=== PATIENT | female | born 1995 | race Caucasian/White ===

== ENCOUNTER → 2017-10-08 | Emergency (ER) | payer OTHER ==
[~2017-10-08] VITALS: Ht 154.9 cm; Wt 73.5 kg
[~2017-10-08] MED LIST: AMOX TR-K250 MG/5 M; IRON1TAB4 PO; MIRALAX12 EA PO; PREVACID30 MG; VALTREX1000 MG PO
== END | disposition home or self-care (01) ==
LOC: ER 16:18
DX: N91.2 Amenorrhea, unspecified (principal); R10.2 Pelvic and perineal pain

== ENCOUNTER → 2017-11-26 | Emergency (ER) | payer OTHER ==
[~2017-11-26] VITALS: Ht 154.9 cm; Wt 76.2 kg
[~2017-11-26] MED LIST changes: +ZANTAC150 MG PO
== END | disposition home or self-care (01) ==
LOC: ER 11:11
DX: R10.13 Epigastric pain (principal)

== ENCOUNTER 2018-09-07 02:53 | Emergency (ER) | payer OTHER ==
[~2018-09-07] VITALS: Ht 157.5 cm; Wt 81.6 kg
== END 2018-09-07 16:27 | disposition home or self-care (01) ==
LOC: ER 02:53
DX: K52.89 Other specified noninfective gastroenteritis and colitis (principal)

== ENCOUNTER 2018-10-22 00:51 | Emergency (ER) | payer OTHER ==
[~2018-10-22] VITALS: Ht 154.9 cm; Wt 80.7 kg
[2018-10-22] MEDS ORDERED: IRON1TAB4 PO (03:29)
== END 2018-10-22 13:47 | disposition home or self-care (01) ==
LOC: ER 00:51
DX: N93.8 Other specified abnormal uterine and vaginal bleeding (principal)

== ENCOUNTER → 2025-09-10 | Emergency (ER) | payer OTHER ==
[~2025-09-10] VITALS: Ht 157.5 cm; Wt 62.6 kg
== END | disposition left against medical advice (07) ==
LOC: ER 01:36
DX: Z53.21 Procedure and treatment not carried out due to patient leaving prior to being seen by health care provider (principal)